=== PATIENT | male | born 1955 | race Caucasian/White ===

== ENCOUNTER 2016-10-15 07:14 | Day surgery (SDC) | payer BC ==
[2016-10-15] VITALS (8 sets, daily range): BP systolic 95–118; BP diastolic 54–66; PULSE 54–80; TEMP 97.5–98.4
[~2016-10-15] VITALS: Ht 177.8 cm; Wt 90.1 kg
[2016-10-15] MEDS ORDERED: GLUCOPHAGE500 MG/TAB PO (08:23)
[2016-10-15] MEDS ORDERED: ZEBETA10 MG PO (08:24)
[2016-10-15] MEDS ORDERED: AVALIDE 12.5 MG1 TA1 PO (08:24)
[2016-10-15] MEDS ORDERED: ZOCOR 80MG80 MG PO (08:24)
[2016-10-15] MEDS ORDERED: NORCO 325 MG-51 TAB PO (10:29)
[2016-10-15] MEDS ORDERED: SENOKOT S 50 MG1 TAB PO (10:30)
[2016-10-15] MEDS ORDERED: PYRIDIUM 100MG100 MG PO (10:32)
== END 2016-10-15 12:00 | disposition home or self-care (01) ==
LOC: SDCO 07:14
DX: N30.20 Other chronic cystitis without hematuria (principal); N32.1 Vesicointestinal fistula; J44.9 Chronic obstructive pulmonary disease, unspecified; I25.10 Atherosclerotic heart disease of native coronary artery without angina pectoris; I12.9 Hypertensive chronic kidney disease with stage 1 through stage 4 chronic kidney disease, or unspecified chronic kidney disease; I25.2 Old myocardial infarction; E11.22 Type 2 diabetes mellitus with diabetic chronic kidney disease; N18.9 Chronic kidney disease, unspecified; E78.5 Hyperlipidemia, unspecified; F17.210 Nicotine dependence, cigarettes, uncomplicated; Z79.84 Long term (current) use of oral hypoglycemic drugs; Z95.5 Presence of coronary angioplasty implant and graft; Z83.3 Family history of diabetes mellitus; Z82.49 Family history of ischemic heart disease and other diseases of the circulatory system; Z80.3 Family history of malignant neoplasm of breast
CPT/HCPCS: C1769; J0690; J1100; J2250; J2405; J2704; J3010; J7120; Q9967

== ENCOUNTER 2016-11-19 09:31 | Inpatient (IN) | payer BC ==
[~2016-11-19] VITALS: Ht 177.8 cm; Wt 89.3 kg
[~2016-11-19 09:31] MED LIST: AVALIDE 12.5 MG1 TA1 PO; GLUCOPHAGE500 MG/TAB PO; NORCO 325 MG-51 TAB PO; PYRIDIUM 100MG100 MG PO; SENOKOT S 50 MG1 TAB PO; ZEBETA10 MG PO; ZOCOR 80MG80 MG PO
[2016-12-07] VITALS (12 sets, daily range): BP systolic 117–126; BP diastolic 63–73; PULSE 62–91; TEMP 97.3–98.2
[2016-12-08 01:36] VITALS: BP 123/65; PULSE 73; TEMP 98.2
[2016-12-08 05:34] VITALS: BP 116/63; PULSE 70; TEMP 98.6
[2016-12-08 08:36] LABS: HEMATOCRIT 35.6 % (42.0-52.0); HEMOGLOBIN 12.5 g/dl (13.5-18.0)
[2016-12-08 08:47] LABS: CALCIUM 8.7 mg/dL (8.4-10.2); CREATININE, serum 1.72 mg/dL (0.66-1.25); POTASSIUM 4.3 mmol/L (3.4-5.0)
[2016-12-08 10:21] VITALS: BP 106/56; PULSE 78; TEMP 98.2
[2016-12-08 13:41] VITALS: BP 106/41; PULSE 70; TEMP 97.9
[2016-12-08 18:26] VITALS: BP 97/55; PULSE 69; TEMP 98.2
[2016-12-08 21:38] VITALS: BP 106/63; PULSE 72; TEMP 98.2
[2016-12-09 02:10] VITALS: BP 129/69; PULSE 67; TEMP 98.2
[2016-12-09 05:09] VITALS: BP 139/75; PULSE 75; TEMP 97.5
[2016-12-09 06:26] LABS: CALCIUM 9.1 mg/dL (8.4-10.2); CREATININE, serum 1.48 mg/dL (0.66-1.25)
[2016-12-09 09:54] VITALS: BP 133/79; PULSE 80; TEMP 98.2
[2016-12-09 13:57] VITALS: BP 110/65; PULSE 72; TEMP 98.5
== END 2016-12-09 18:10 | disposition home or self-care (01) | DRG 983 ==
LOC: INPTSU 12-07 10:00 → SURG 12-07 12:30
PROVIDERS: Surgery
PROC: 8E0W4CZ Robotic Assisted Procedure of Trunk Region, Percutaneous Endoscopic Approach (ICD-10-PCS; 2016-12-07)
PROC: 0DTN4ZZ Resection of Sigmoid Colon, Percutaneous Endoscopic Approach (ICD-10-PCS; principal; 2016-12-07 12:30)
DX: N32.1 Vesicointestinal fistula (principal); K57.30 Diverticulosis of large intestine without perforation or abscess without bleeding; I10 Essential (primary) hypertension; I25.10 Atherosclerotic heart disease of native coronary artery without angina pectoris; J44.9 Chronic obstructive pulmonary disease, unspecified; Z95.5 Presence of coronary angioplasty implant and graft; F17.210 Nicotine dependence, cigarettes, uncomplicated
CPT/HCPCS: A4315; A9284; J1100; J1650; J1815; J2405; J2704; J3010; J7030

== ENCOUNTER → 2018-10-06 | Outpatient (CLI) | payer BC ==
[~2018-10-06] VITALS: Ht 177.8 cm; Wt 95.7 kg
[~2018-10-06] MED LIST changes: +ASPIRIN E.C. 8181 MG PO; +CEROVITE SENIOR1 TA1 PO; +GLUCOPHAGE1000 MG PO; +JANUVIA 100MG100 MG PO
[2018-10-06 05:59] VITALS: BP 132/79; PULSE 68
== END ==
LOC: COL.CARD 05:45
DX: I25.10 Atherosclerotic heart disease of native coronary artery without angina pectoris (principal)
CPT/HCPCS: A9500

== ENCOUNTER 2021-02-23 10:07 | Inpatient (IN) | payer BC, MEDICARE ==
[~2021-02-23] VITALS: Ht 177.8 cm; Wt 105.3 kg
[2021-02-23] VITALS (69 sets, daily range): BP systolic 100; BP diastolic 63–79; PULSE 71–76; TEMP 97.7; O2SAT 89–98
[2021-02-23 10:54] LABS: HEMATOCRIT 36.4 % (42.0-52.0); HEMOGLOBIN 13.2 g/dl (13.5-18.0); MEAN CELL VOLUME 86 fl (80.0-100.0); MEAN CORPUSCULAR HEMOGLOBIN 31 pg (27.0-31.0); MEAN CORPUSCULAR HGB CONC 36 g/dl (33.0-37.0); MEAN PLATELET VOLUME 11.1 fl (7.4-10.4); PLATELET COUNT 152 K/mm3 (130-400); RED BLOOD COUNT 4.23 M/mm3 (4.20-5.60); REDCELL DISTRIBUTION WIDTH-CV 12.4 % (11.5-14.5)
[2021-02-23 11:16] LABS: ALBUMIN 3.3 gm/dL (3.4-4.8); BILIRUBIN,TOTAL 1.5 mg/dL (0.2-1.2); CREATININE, serum 5.07 mg/dL (0.72-1.25); POTASSIUM 3.5 mmol/L (3.5-4.5); TOTAL PROTEIN 7.6 gm/dL (6.2-8.1)
[2021-02-23 11:18] LABS: EOSINOPHIL 3 % (0-4); LYMPHOCYTE 6 % (20.0-51.0); NEUTROPHILS 81 % (42.0-75.2)
[2021-02-23 11:19] LABS: PLATELET ESTIMATE NORMAL (NORMAL)
[2021-02-23 11:25] LABS: TROPONIN-I 0.061 ng/mL (0.00-0.033)
[2021-02-23] MEDS ORDERED: FARXIGA10 PO (12:26)
[2021-02-23] MEDS ORDERED: TRULICITY0.75 MG/0. SQ (14:00)
[2021-02-23 14:01] LABS: COLLECTION METHOD CLEAN CATCH
[2021-02-23 14:20] LABS: MUCOUS Present /lpf; PH 5 (5-8); SQUAMOUS EPITHELIAL 0-2 /hpf; URINE APPEARANCE Clear; URINE BACTERIA None Seen /hpf; URINE BILIRUBIN Negative (NEGATIVE); URINE BLOOD 2+ (NEGATIVE); URINE COLOR Yellow; URINE GLUCOSE 2+ (NEGATIVE); URINE KETONE Negative (NEGATIVE); URINE LEUKOCYTE ESTERASE Negative (NEGATIVE); URINE NITRATE Negative (NEGATIVE); URINE PROTEIN(semi-quant) Negative (NEGATIVE); URINE RBC 0-2 /hpf; URINE UROBILINOGEN Negative (NEGATIVE)
[2021-02-23 19:03] LABS: CREATININE, serum 4.64 mg/dL (0.72-1.25); POTASSIUM 3.7 mmol/L (3.5-4.5)
[2021-02-23 19:08] LABS: CALCIUM 13.1 mg/dL (8.4-10.2)
[2021-02-23 19:21] LABS: TROPONIN-I 0.052 ng/mL (0.00-0.033)
[2021-02-24] VITALS (476 sets, daily range): BP systolic 115–133; BP diastolic 66–79; PULSE 75–92; TEMP 97.8–99.5; O2SAT 84–99
[2021-02-24 01:53] LABS: CREATININE, serum 4.18 mg/dL (0.72-1.25); POTASSIUM 3.5 mmol/L (3.5-4.5)
[2021-02-24 01:54] LABS: CALCIUM 12.6 mg/dL (8.4-10.2)
[2021-02-24 08:48] LABS: BASO % 0.4 % (0.0-2.0); EOS # 0.3 K/mm3 (0.0-0.7); EOS % 3.7 % (0-4.0); GRAN # 5.6 K/mm3 (1.4-6.5); GRAN % 74.5 % (42.2-75.2); HEMATOCRIT 32.6 % (42.0-52.0); HEMOGLOBIN 11.4 g/dl (13.5-18.0); LYMPH # 0.6 K/mm3 (1.2-3.4); LYMPH % 8.5 % (20.0-51.0); MEAN CELL VOLUME 89 fl (80.0-100.0); MEAN CORPUSCULAR HEMOGLOBIN 31 pg (27.0-31.0); MEAN CORPUSCULAR HGB CONC 35 g/dl (33.0-37.0); MEAN PLATELET VOLUME 10.7 fl (7.4-10.4); MONO # 0.9 K/mm3 (0.1-0.6); MONO % 12.5 % (1.7-9.3); PLATELET COUNT 114 K/mm3 (130-400); RED BLOOD COUNT 3.65 M/mm3 (4.20-5.60); REDCELL DISTRIBUTION WIDTH-CV 12.3 % (11.5-14.5)
[2021-02-24 12:45] LABS: CREATININE, serum 3.7 mg/dL (0.72-1.25)
[2021-02-24 12:46] LABS: CALCIUM 11.6 mg/dL (8.4-10.2); MAGNESIUM 1.5 mg/dL (1.6-2.3); PHOSPHOROUS 2.8 mg/dL (2.5-4.5); POTASSIUM 3.2 mmol/L (3.4-5.0)
[2021-02-25 00:51] VITALS: BP 121/56; PULSE 87; TEMP 97.9
[2021-02-25 04:38] VITALS: BP 125/64; PULSE 85; TEMP 97.4
[2021-02-25 07:43] LABS: BASO % 0.7 % (0.0-2.0); EOS # 0.2 K/mm3 (0.0-0.7); EOS % 3.8 % (0-4.0); GRAN # 3.2 K/mm3 (1.4-6.5); GRAN % 70.9 % (42.2-75.2); HEMOGLOBIN 10.7 g/dl (13.5-18.0); LYMPH # 0.5 K/mm3 (1.2-3.4); LYMPH % 11.1 % (20.0-51.0); MEAN CELL VOLUME 88 fl (80.0-100.0); MEAN CORPUSCULAR HEMOGLOBIN 31 pg (27.0-31.0); MEAN CORPUSCULAR HGB CONC 35 g/dl (33.0-37.0); MONO # 0.6 K/mm3 (0.1-0.6); MONO % 13.1 % (1.7-9.3); PLATELET COUNT 117 K/mm3 (130-400); RED BLOOD COUNT 3.45 M/mm3 (4.20-5.60); REDCELL DISTRIBUTION WIDTH-CV 12.2 % (11.5-14.5)
[2021-02-25 07:47] LABS: HEMATOCRIT 30.5 % (42.0-52.0)
[2021-02-25 07:55] VITALS: BP 147/71; PULSE 86; TEMP 98.1
[2021-02-25 07:55] LABS: CALCIUM 10.8 mg/dL (8.4-10.2); CREATININE, serum 2.79 mg/dL (0.72-1.25); POTASSIUM 3.3 mmol/L (3.5-4.5)
[2021-02-25 12:55] VITALS: BP 137/61; PULSE 84; TEMP 97.9
[2021-02-25 17:30] LABS: CHOLESTEROL RISK RATIO 5.8
[2021-02-25 18:01] VITALS: BP 115/87; PULSE 89; TEMP 98.4
[2021-02-25 19:57] VITALS: BP 129/59; PULSE 84; TEMP 98.3
[2021-02-26 00:47] VITALS: BP 111/57; PULSE 80; TEMP 97.5
[2021-02-26 04:54] VITALS: BP 142/69; PULSE 82; TEMP 98.6
[2021-02-26 06:45] LABS: BASO % 0.8 % (0.0-2.0); EOS # 0.2 K/mm3 (0.0-0.7); EOS % 4.2 % (0-4.0); GRAN # 3.3 K/mm3 (1.4-6.5); GRAN % 66.8 % (42.2-75.2); HEMOGLOBIN 10.7 g/dl (13.5-18.0); LYMPH # 0.6 K/mm3 (1.2-3.4); LYMPH % 12.5 % (20.0-51.0); MEAN CELL VOLUME 91 fl (80.0-100.0); MEAN CORPUSCULAR HEMOGLOBIN 31 pg (27.0-31.0); MEAN CORPUSCULAR HGB CONC 34 g/dl (33.0-37.0); MEAN PLATELET VOLUME 10.8 fl (7.4-10.4); MONO # 0.8 K/mm3 (0.1-0.6); MONO % 15.3 % (1.7-9.3); PLATELET COUNT 126 K/mm3 (130-400); RED BLOOD COUNT 3.45 M/mm3 (4.20-5.60); REDCELL DISTRIBUTION WIDTH-CV 12.3 % (11.5-14.5)
[2021-02-26 06:49] LABS: HEMATOCRIT 31.4 % (42.0-52.0)
[2021-02-26 06:59] LABS: CALCIUM 10.9 mg/dL (8.4-10.2); CREATININE, serum 2.48 mg/dL (0.72-1.25); POTASSIUM 3.6 mmol/L (3.5-4.5)
[2021-02-26 07:18] VITALS: BP 141/64; PULSE 92; TEMP 98.3
[2021-02-26] MEDS ORDERED: PEPCID 20MG TAB20 MG PO (10:39)
[2021-02-26 11:41] VITALS: BP 141/68; PULSE 92; TEMP 98
== END 2021-02-26 14:30 | disposition home or self-care (01) | DRG 682 ==
LOC: COL.ER 10:07 → ICU 12:59 → MEDICAL 12:59 → ICU 14:59 → MEDICAL 02-24 19:49
PROVIDERS: Emergency Medicine; Internal Medicine Gastroenterology; Physician Assistant; Student in an Organized Health Care Education/Training Program; ADMIT Internal Medicine
DX: N17.9 Acute kidney failure, unspecified (principal); I63.81 Other cerebral infarction due to occlusion or stenosis of small artery; E87.1 Hypo-osmolality and hyponatremia; E87.2 Acidosis; G93.40 Encephalopathy, unspecified; E83.52 Hypercalcemia; I25.10 Atherosclerotic heart disease of native coronary artery without angina pectoris; E78.5 Hyperlipidemia, unspecified; E86.1 Hypovolemia; E87.8 Other disorders of electrolyte and fluid balance, not elsewhere classified; I11.0 Hypertensive heart disease with heart failure; I50.9 Heart failure, unspecified; E86.0 Dehydration; I95.9 Hypotension, unspecified; D69.6 Thrombocytopenia, unspecified; E11.51 Type 2 diabetes mellitus with diabetic peripheral angiopathy without gangrene; Z20.822 Contact with and (suspected) exposure to COVID-19; Z79.82 Long term (current) use of aspirin; Z87.891 Personal history of nicotine dependence
CPT/HCPCS: 99223-AI; 99232-AI; 99233-AI; 99239; J1200; J1644; J1815; J1940; J2405; J2430; J2543; J2765; J3475; J7030